=== PATIENT | male | born 1945 | race Caucasian/White ===

== ENCOUNTER 2020-10-16 07:00 | Outpatient (CLI) | payer MEDICARE | END 2020-10-16 23:59 | disposition home or self-care (01) | LOC: COV 07:00 | PROVIDERS: ATTEND Family Medicine | DX: Z01.812 Encounter for preprocedural laboratory examination (principal); Z20.828 Contact with and (suspected) exposure to other viral communicable diseases ==

== ENCOUNTER 2020-11-27 19:42 | Outpatient (CLI) | payer MEDICARE | END 2020-11-27 19:43 | disposition home or self-care (01) | LOC: COV 19:42 | PROVIDERS: ATTEND Otolaryngology | DX: Z01.812 Encounter for preprocedural laboratory examination (principal); Z20.822 Contact with and (suspected) exposure to COVID-19 ==